=== PATIENT | male | born 1950 | race Caucasian/White ===

== ENCOUNTER 2017-01-15 10:04 | Inpatient (IN) | payer MEDICARE, BC ==
[~2017-01-15] VITALS: Ht 190.5 cm; Wt 136.1 kg
--- NOTE | ~2017-01-15 | ECH ---
Transthoracic Echocardiography Report (TTE) Demographics Patient Name TALIA KLEIN Date of Study 01/17/2017 R Patient Number [id number] Visit Number [id number] Date of 1950 Room Number 407 Accession Number [id number] Gender Male Age 66 year(s) Referring Jennifer Vale Production Maintenance Technician Jessi Whitmore [facility] Physician Physician Surendra Mccloud MD Human Services Assistant Physician Joe Supervising Ordering Physician Jean Hunt MD/MLP Nurse Stress Cement Mixer Driver Conclusions Contractility Score Summary Normal Left Ventricular contractility was noted. Summary Technically fair exam. The estimated left ventricular ejection fraction is 60-65%. Moderate septal left ventricular hypertrophy. The left atrium is mildly dilated. Mild tricuspid regurgitation by color Doppler. There is mild pulmonary hypertension. The pulmonary pressure (RVSP) is 36 mmHg. Trivial pulmonic valve regurgitation by color Doppler. The ascending aorta appears mildly dilated. The maximum diameter measures 3.6 cm. Recommendation The patient was given the results of the exam during their hospital stay. Procedure Type of Study TTE procedure:Echo Complete SF. Procedure Date Date: 01/17/2017 Start: 08:33 AM Technical Quality: Adequate visualization Indications:Hypertension and Chest pain. Appropriate Use Criteria: 9 Height: 73 inches Weight: 310 pounds BSA: 2.59 m Rhythm: Within normal limits HR: 62 bpm BP: 131/68 mmHg M-Mode/2D Measurements LV Diastolic Dimension: 5.5 cm LV Systolic Dimension: 3.4 cm LV Septum Diastolic: 1.63 cm LV PW Diastolic: 1.06 cm AO Root Dimension: 3.09 cm Cardiac Output: 6.95 l/min LA Dimension: 4.97 cm Cardiac Index: 2.68 l/min*m RV Diastolic Dimension: 4.37 cm LVOT: 2.27 cm LVOT VTI: 27.72 cm LV Stroke volume: 112.13 ml LV Stroke volume index: 43.29 ml/m Doppler Measurements AV Mean Gradient: 4.83 mmHg MV Peak E-Wave: 0.86 m/s LVOT Peak Velocity: 1.36 m/s MV Peak A-Wave: 0.26 m/s AV Area (Continuity):4.46 cm MV P1/2t: 62 msec TR Velocity:2.77 m/s TR Gradient:30.7 mmHg MV Deceleration Time: 244.5 msec Estimated RAP:5 mmHg MV Area (PHT): 3.55 cm Estimated RVSP: 36 mmHg PV Peak Velocity: 1.22 m/s PV Peak Gradient: 5.98 mmHg Estimated PASP: 35.7 mmHg Findings Left Ventricle Normal left ventricle size and function. Diastolic assessment reveals normal relaxation. Moderate septal left ventricular hypertrophy. Right Ventricle Right ventricle not well visualized. Left Atrium The left atrium is mildly dilated. Right Atrium Right atrium not well visualized. Mitral Valve Normal mitral valve structure and function. Aortic Valve Normal aortic valve structure and function. Tricuspid Valve Normal tricuspid valve structure and function. Mild tricuspid regurgitation by color Doppler. There is mild pulmonary hypertension. The pulmonary pressure (RVSP) is 36 mmHg. Pulmonic Valve Normal pulmonic valve structure and function. Trivial pulmonic valve regurgitation by color Doppler. Miscellaneous The ascending aorta appears mildly dilated. The maximum diameter measures 3.6 cm. Contractility Score LV regional wall motion:(0-Non visualized 1-Normal 2-Hypokinesis 3-Akinesis 4-Dyskinesis 5-Aneurysm) Signature
[2017-01-19] MEDS ORDERED: ASA CHILDREN'S81 MG PO (06:51)
[2017-01-19] MEDS ORDERED: MOBIC15 MG PO (06:51)
[2017-01-19] MEDS ORDERED: ATIVAN-DPS0.5 MG PO (06:52)
[2017-01-19] MEDS ORDERED: HYDROXYZINE HCL50 MG PO (06:52)
[2017-01-19] MEDS ORDERED: COREG DPS6.25 MG PO (06:52)
[2017-01-19] MEDS ORDERED: ZESTORETIC 10/11 TAB PO (06:52)
[2017-01-19] MEDS ORDERED: TYLENOL DPS325 MG PO (06:53)
[2017-01-19] MEDS ORDERED: ZOLOFT DPS25 MG PO (06:53)
[2017-01-19] MEDS ORDERED: DESYREL-DPS50 MG PO (06:53)
[2017-01-19] MEDS ORDERED: ULTRAM DPS50 MG PO (06:54)
--- NOTE | 2017-01-22 20:52 | CO ---
ADMIT: 01/15/2017 RM/LOC: 407 [facility] MR#: [id number] [address] [address] [place] [address] Consultation SEX: M AGE: 66 : 1950 DATE OF CONSULTATION: 01/17/2017 ATTENDING PHYSICIAN: Luther Rodriguez CONSULTING PHYSICIAN: Joe Mccloud MD REASON FOR CONSULT: Dyspnea. Rae Chavez RN, scribing for Dr. Joe Mccloud. HISTORY OF PRESENT ILLNESS: Uday is a pleasant 66-year-old gentleman I have been asked to see in Cardiology consultation by Dr. Luther Rodriguez for dyspnea. He has no prior history of coronary artery disease. He reports [facility] the [facility]. In 2008, he was evaluated in the hospital with echocardiogram that was negative, and he followed up with Dr. Ray Rodriguez at the [facility] at that time and has not needed followup since then. He has history of former tobacco use and quit several years ago, does not take any regular medications at home. Uday had right rotator cuff surgery about 5 days ago as an outpatient. He reports that since that time he has had increased shortness of breath and panic-type sensations. He feels like it all stems back from when he had a skin cancer removal on his face in July where they had difficulty getting the bleeding to stop and had to hold pressure for quite some. During that episode, he vasovagaled and had near-syncope and states that he has had episodes of panic attack type symptoms with shortness of breath and palpitations since then. He denies any noted elevated heart rates even though he has palpitations. Uday had his rotator cuff surgery last week and since then his and he report that he has had episodes where he is severely anxious, feels like he cannot breathe and he has audible wheezing during that time in his throat. He came and saw his primary care physician at the primary care physician's office Tuesday because his breathing was so severe and was directly admitted with possible DVT with some leg swelling. CTA was a suboptimal test, but did not show any obvious PE and venous duplex did not show any abnormalities. Blood work essentially has been normal. Cardiac enzymes have been negative x3 sets. The EKG did not show any significant ST-T changes. When he did arrive, his blood pressure was quite elevated in the 170s and 180 systolic, and with addition of Ativan, Zoloft as well as Coreg and Zestoretic, his blood pressure is now in the 130s consistently. Echocardiogram was ordered and results on that are pending. PAST MEDICAL HISTORY: Former tobacco use, hearing loss with hearing aids, anxiety, osteoarthritis, gout, gallbladder disease, status post cholecystectomy, and skin cancer. PAST SURGICAL HISTORY: Skin cancer removal on the face, right rotator cuff about 5 days ago, tonsillectomy, and cholecystectomy. ALLERGIES: PENICILLIN. ADMIT: 01/15/2017 RM/LOC: 407 [facility] MR#: [id number] [address] [place] [id number] [place] [address] Consultation SEX: M AGE: 66 : 1950 MEDICATIONS: Current medications include: 1. Aspirin 162 mg daily. 2. Ativan 1 p.o. b.i.d. 3. Coreg 6.25 p.o. b.i.d. 4. Zestoretic 10/12.5 daily. 5. Zoloft 75 daily. 6. Lovenox 30 mg subcu daily. FAMILY HISTORY: Positive family history of heart disease in a brother, who at the age of 49 from [place]. Father also had some coronary artery disease issues. Positive family history of diabetes in 2 brothers including the one that at the age of 49. SOCIAL HISTORY: Uday is . He lives at home with his . 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 He drinks 2 cups of coffee a day, has about 2 alcoholic beverages a day. Denies any special diet, history of drug use and has former tobacco use. REVIEW OF SYSTEMS: GENERAL: Denies any increased fatigue, did have a mild temperature periodically during hospital stay, none at home. Denies any weight changes. EYES: Denies double vision, blurred vision, cataracts, or glaucoma. ENT: Wears hearing aids. Denies problems with nose, mouth or throat. RESPIRATORY: Some wheezing with panic. Denies cough, sputum production, asthma, emphysema or bronchitis. Denies snoring loudly, wakefulness at night, or fatigue upon awakening. GASTROINTESTINAL: History of gallbladder disease status post cholecystectomy. Denies heartburn or difficulty swallowing. No change in bowel habits. Denies dark or bloody stools. No history of ulcers, hiatal hernia, or liver disease. GENITOURINARY: Denies dysuria, hematuria, nocturia, urinary tract infection, or kidney stones. Denies history of renal insufficiency or failure. MUSCULOSKELETAL: Osteoarthritis in knees and gout positive. Denies any current muscle or joint pains. ENDOCRINE: Denies history of thyroid dysfunction or diabetes. HEMATOLOGIC: Denies history of anemia, easy bruising, or cancer. NEUROLOGIC: Denies chronic headaches, dizziness, syncope, stroke, seizures or numbness or tingling. PSYCHIATRIC: Denies history of mental illness or feelings of depression. PHYSICAL EXAMINATION: VITAL SIGNS: Blood pressure 139/70, heart rate 54, respirations 16, temperature 99.1, and oxygenation 95% on room air. SKIN: [place], warm and dry. EYES: Sclerae clear. No xanthelasmas. ENT: Oral mucosa is pink and moist. No jugular venous distention or carotid bruits. CHEST: Respirations are even and unlabored. Lungs are clear to auscultation. HEART: Regular rate and rhythm. Normal S1, S2. No murmurs, rubs or gallops. ABDOMEN: Obese, soft, and nontender. ADMIT: 01/15/2017 RM/LOC: 407 [facility] MR#: [id number] [address] [address] [place] [address] Consultation SEX: M AGE: 66 : 1950 MUSCULOSKELETAL: Gait is normal. EXTREMITIES: Peripheral pulses palpable. No clubbing, cyanosis or edema. PSYCHIATRIC: Alert and oriented. Mood and affect are appropriate. DIAGNOSTIC DATA: Sodium 142, potassium 3.9, BUN 17, creatinine 1.0, glucose 129, magnesium 2.0, cholesterol 169, triglycerides 105, HDL 49, LDL 99, TSH 0.653, CRP 4.57. White blood cell count 6.1, hemoglobin 13.1, hematocrit 41.3, and platelets 179. CK 247, MB 4.0, troponin 0.016 on 3 sets of negative enzymes. Hemoglobin A1c 5.9. ASSESSMENT AND PLAN: 1. Dyspnea. 2. Palpitations. 3. Anxiety. 4. Postop shoulder. I am uncertain as to the etiology of his symptoms. It appears to be more anxiety, but up until July, he has not had that history. I will review echocardiogram for wall motion abnormalities, valvular abnormalities, or decreased ejection fraction. I see no evidence of acute coronary syndrome. He had no evidence of PE on CTA. I will continue to follow him closely. Thank you for the consultation. "I have read and agree with the documentation that has been completed regarding this visit. By signing this record, I attest that the documentation was completed in my physical presence and is an accurate record of the encounter." Rae Chavez RN / Joe Mccloud MD / giovanny JOB #: [id number] CC: Luther Rodriguez, Attending Physician Luther Rodriguez, Family Physician
--- NOTE | 2017-01-29 08:51 | DS ---
ADMIT: 01/15/2017 RM/LOC: 407 [facility] MR#: [id number] ACC#: [id number] [address] [place], [place] [address] TALIA [place] [address] General Discharge Summary SEX: M AGE: 66 : 1950 ADMISSION DATE: 01/15/2017 DISCHARGE DATE: 01/18/2017 FINAL DIAGNOSES: 1. Acute dyspnea - apparent medication reaction. 2. Recent right rotator cuff repair. 3. History of gout. 4. Previous tonsillectomy and cholecystectomy. BRIEF HISTORY: This 66-year-old gentleman had presented to the ER 3 days post right rotator cuff repair with complaints of acute shortness of breath during the night. He was able to sleep off and on, but would wake up frequently and had more severe shortness of breath the morning upon awakening. He actually came to our clinic initially for evaluation. He felt anxious and short of breath. His O2 saturation on room air was 96%. He had a temp of 99.7, blood pressure 144/80, and pulse is 71. He had 1+ pedal edema of his right leg with some tenderness on palpation of lower leg particularly the calf. Chest x-ray was unremarkable, and it was felt best to admit him to rule out pulmonary embolus and other issues. SIGNIFICANT LAB AND X-RAY: On admission, CBC was normal, but for a hemoglobin of 13.4, repeat CBC of 43 also was normal, but for hemoglobin 13.1. Protime and INR on admission were normal. Initially, his serial PTTs were followed. On 01/17, CMP was normal, but for a glucose of 129 mg/dL. On 01/17, total cholesterol/HDL/LDL/triglycerides were 169/49/99/105 respectively. On admission, procalcitonin was less than 0.05. Cardiac enzymes obtained on admission were normal, but for an MB fraction of 3.9 ng/mL (normal 0.0 to 3.6) and repeat cardiac enzymes 6 hours later were unchanged. At 10:47 on 01/15, arterial blood gases on room air showed a corrected pH of 7.440 with a corrected CO2 of 39.8, a corrected pO2 of 83.4, and a calculated O2 saturation of 96%. On 01/15, glycosylated hemoglobin was 5.9%. On 01/17, C-reactive protein was 4.57 mg/dL (normal less than 0.30), and TSH was normal at 0.653 uIU/L (normal 0.400 to 3.800). On 01/18/2017, fructosamine level was 194 umol/L (normal 208 to 285), and anti- phosphatidyl IgA, anti-phosphatidyl IgG, and anti-phosphatidyl IgM were within normal limits. Cardiolipin antibody IgA was less than 1 CU. IgG was less ADMIT: 01/15/2017 RM/LOC: 407 [facility] MR#: [id number] [address] [place] [id number] TALIA KLEIN [address] [place] [address] General Discharge Summary SEX: M AGE: 66 : 1950 than 3 IU. IgM was 5 CU (normal 0 to 20). Beta-2 glycoprotein IgA was less than 4 CU and IgG was less than 6. Beta-2, IgM, cardiolipin antibody IgG and IgM were also normal as was anticardiolipin antibody IgA. Protein C antigen was 166% (normal 70 to 140). Factor V Leiden mutation was not detected. Protein S total was 115% (normal 70 to 140). Lupus inhibitor screen was negative, but for a DRVVT of 52.5 seconds (normal 31.8 to 45.7). Anti-thrombin Ag was 91% (normal 70 to 110). On admission, CTA of the chest was read as "impression: 1. Suboptimal contrast bolus for detection of pulmonary embolism. No CT evidence of right heart strain. 2. Mild scattered linear subsegmental atelectasis.". On 01/15, deep venous Doppler of the right lower extremity was read as "negative for DVT." Overnight oximetries on 01/15, 01/16, and 01/17, showed minimal time spent less than 90%. On admission, EKG was read as "sinus rhythm, possible inferior infarct, age undetermined, anterior T-wave abnormalities, nonspecific..." On 01/17, echocardiogram was read as ejection fraction of 60% to 65%, moderate septal left ventricular hypertrophy, mildly dilated left atrium, mild tricuspid regurgitation with mild pulmonary hypertension, trivial pulmonic valve regurgitation and "the ascending aorta appears mildly dilated. The maximum diameter measures 3.6 cm." HOSPITAL COURSE: The patient was admitted from the office, and the imaging and laboratory studies outlined above were begun. He was placed in ICU with routine ICU orders. He was started on heparin per protocol. He was allowed Ativan for restlessness and oxycodone for his postop pain. On 12/15, Carvedilol 6.25 daily b.i.d. was initiated. By 01/16, he was mildly hypertensive. Lisinopril/HCTZ 12.5, was instituted. His Ativan dose was increased. Heparin was discontinued. He was started on aspirin 162 mg daily and Lovenox 30 mg subcu daily. Subsequently, Cardiology consult was requested because of his dizziness. Neurology was not available. By 01/17, he complained of still having some confusion upon awakening and poor sleep. He was started on Zoloft 25 mg daily and trazodone 50 mg at bedtime. Following Cardiology consultation, the rest of workup was repeated. By 01/18 (day 3), he is alert and had no further confusion, seemed back to baseline and was felt safe to dismiss him to home to continue with PT per ADMIT: 01/15/2017 RM/LOC: 407 [facility] MR#: [id number] 26[address] [facility] [address] [place] [phone] TALIA KLEIN [facility] [address] General Discharge Summary SEX: M AGE: 66 : 1950 Orthopedics. A split night sleep study was arranged in 4 to 6 weeks. I will see him in the office in 4-6 weeks in followup. He was sent home on home O2 initially. He will be seen in [facility] in about 1 month. DISCHARGE MEDICATIONS: Included: 1. Aspirin 162 mg daily. 2. Ativan 0.5 mg b.i.d. p.r.n. 3. Coreg 6.25 mg b.i.d. 4. Zestoretic 07/28.5 one daily. 5. Zoloft 25 mg daily for a week then 50 mg daily. P.r.n. orders for: 1. Ativan. 2. Trazodone. 3. Tylenol. He will also be placed back on his routine meloxicam 15 mg daily and hydroxyzine 50 mg 1 or 2 q.6 hours p.r.n. itching. He will be allowed Ultram 50 mg q.6 hours for pain. CONDITION ON DISCHARGE: Stable with above treatment. FINAL DISPOSITION: As noted. PROGNOSIS: Good. Luther Rodriguez MD/ giovanny JOB #: [id number] CC: Luther Rodriguez MD, Attending Physician Luther Rodriguez MD, Family Physician
--- NOTE | 2017-03-01 08:20 | HP ---
ADMIT: 01/15/2017 RM/LOC: 307 [facility] MR#: [id number] [facility]#: [id number] [address] [address] [place] [address] History and Physical SEX: M AGE: 66 : 1950 DATE OF SERVICE: CHIEF COMPLAINT: Shortness of breath and wheezing. REASON FOR ADMISSION: Acute pulmonary embolus with right DVT. HISTORY OF PRESENT ILLNESS: Miguel Crane is a 66-year-old male, who is three days postop right rotator cuff repair, who presents today with complaints of acute shortness of breath in the night. He was able to sleep off and on through the night, but would wake up frequently with shortness of breath and had more severe shortness of breath early this morning on waking. He and his walked into the clinic this morning for evaluation. At the time of his arrival, he denied chest pain. He felt anxious and short of breath. Dr. Gilbert Pena saw him with me this morning. On exam this morning, his blood pressure is 144/80, pulse is 71 beats per minute, temperature 99.7, O2 saturation at 96%. Heart, regular rate and rhythm. No murmur was noted. Chest was clear. He had 1+ pedal edema of his right lower leg with tenderness on palpation of the lower leg, particularly at the calf. His chest x-ray was unremarkable. Because of the acute nature of his symptoms, he was admitted to [facility] to ICU per Dr. Pena. PAST MEDICAL AND SURGICAL HISTORY: He has no active medical problems. He has history of gout. He had a previous tonsillectomy and cholecystectomy. ALLERGIES: HE HAS A KNOWN ALLERGY TO PENICILLIN. CURRENT MEDICATIONS: 1. Multivitamin. 2. Hydroxyzine 50 mg one to two q.6 hours p.r.n. 3. Mobic 15 mg daily. 4. Oxycodone 5 mg tablets one to two q.4 hours. SOCIAL HISTORY: He consumes two cups of coffee per day. He is a former smoker. Alcohol use is two drinks per day. He lives with his spouse. 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 FAMILY HISTORY: Positive for coronary artery disease, hypertension, and respiratory disorder. Mother with a history of alcoholism. Brother, history of diabetes mellitus. REVIEW OF SYSTEMS: HEENT: No recent upper respiratory congestion, postnasal drip, or sore throat. RESPIRATORY: No recent cough or shortness of breath other than his acute symptoms. He denies history of heart problems in the past. No shortness of breath today. He feels sweaty or diaphoretic this morning, and has had some accompanying nausea as well. GI: No nausea, vomiting, or diarrhea. No blood in his stool or black stool. : No urinary urgency, frequency, or dysuria. No history of prostate ADMIT: 01/15/2017 RM/LOC: 307 [facility] MR#: [id number] [address] [place] [id number] [place] [address] History and Physical SEX: M AGE: 66 : 1950 disease. EXTREMITIES: As noted, he has had recent right rotator cuff repair. He has no other joint or muscle complaints at this time. NEUROLOGIC: Oriented x3. He complains of no focal neurologic deficits. No change in his vision. No weakness, numbness, or tingling of his extremities. He is ambulatory. PHYSICAL EXAMINATION: GENERAL: Exam reveals an obese 66-year-old male, who is rather anxious and in mild distress secondary to shortness of breath. VITAL SIGNS: As noted above. HEENT: Normocephalic. TMs are translucent. Oral mucous membranes are moist. Pharynx is noninflamed. NECK: Supple. No adenopathy or thyromegaly. No carotid bruits noted bilaterally. HEART: Regular rate and rhythm. No murmur. CHEST: Clear to auscultation and percussion. ABDOMEN: Bowel sounds are normoactive. Abdomen is soft. No obvious tenderness or abnormal masses. No hepatosplenomegaly. GENITAL: Deferred. EXTREMITIES: With edema present from his ankle to his knee on the right with 1+ edema present there. Left leg appears normal. Distal pulses at the posterior tibial and dorsalis pedis are 2+ over 4+ and symmetric bilaterally. He has tenderness to palpation over the right shoulder obviously from his recent surgery. NEUROLOGIC: He is oriented x3. He appears anxious. Cranial nerves II through XII are intact. PERRLA. EOMs are intact. He is ambulatory. No focal neurologic deficits are noted. SKIN: No rashes. He has an incision in his right shoulder without infection. ASSESSMENT: 1. Acute shortness of breath, suspect acute pulmonary embolism. 2. Probable right deep vein thrombosis. PLAN: Admit to ICU per Dr. Pena. We will start workup for thromboembolic disease and start on heparin. Spiral CT and further labs were scheduled this morning as well. Sejal Zapata PA-C / Gilbert Pena MD / giovanny JOB #: [id number] CC: Gilbert Pena, Attending Physician Luther Rodriguez, Family Physician
== END 2017-01-18 12:26 | disposition home or self-care (01) | DRG 204 ==
LOC: 3ICU 10:04 → 4PCU 10:04 → 3ICU 17:18 → 4PCU 01-16 11:49
PROVIDERS: ADMIT Family Medicine
DX: R06.00 Dyspnea, unspecified (principal); E66.9 Obesity, unspecified; T50.905A Adverse effect of unspecified drugs, medicaments and biological substances, initial encounter; R00.2 Palpitations; M79.604 Pain in right leg; H91.90 Unspecified hearing loss, unspecified ear; F41.9 Anxiety disorder, unspecified; G47.33 Obstructive sleep apnea (adult) (pediatric); M19.90 Unspecified osteoarthritis, unspecified site; Z97.4 Presence of external hearing-aid; Z98.890 Other specified postprocedural states; Z82.49 Family history of ischemic heart disease and other diseases of the circulatory system; Z87.891 Personal history of nicotine dependence; Z68.38 Body mass index [BMI] 38.0-38.9, adult